=== PATIENT | female | born 1985 | race Caucasian/White ===

== ENCOUNTER → 2018-12-05 | Outpatient (CLI) | payer BC ==
--- NOTE | 2018-12-05 16:12 | CARD ---
MR#: [id number] Date of Study: 12/05/2018 Ordering Physician: PAMELA WOOD, Referring Physician: PAMELA WOOD, Tech: Lacey Mills APPROVED REPORT EXAM: Two-dimensional and M-mode echocardiogram with Doppler and color Doppler. Other Information Quality : AverageHR: 75bpm Technically limited study due to Breast Surgery INDICATION Palpitations 2D DIMENSIONS RVDd2.5 (2.9-3.5cm)Left Atrium(2D)3.1 (1.6-4.0cm) IVSd0.9 (0.7-1.1cm)Aortic Root(2D)2.8 (2.0-3.7cm) LVDd4.1 (3.9-5.9cm)LVOT Diameter2.0 (1.8-2.4cm) PWd0.8 (0.7-1.1cm)LVDs2.1 (2.5-4.0cm) FS (%) 48.5 %SV58.1 ml LVEF(%)80.3 (>50%) Aortic Valve AoV Peak Long.122.2cm/sAoV VTI23.6cm AO Peak GR.6.0mmHgLVOT Peak Long.103.1cm/s LVOT VTI 21.36cmAO Mean GR.3mmHg ARLENE (VMAX)2.75mo3CKZ (VTI)2.80cm2 Mitral Valve MV E Xznrgxbh95.4cm/sMV DECEL [id number] MV A Evozvwts42.8cm/sE/A Ratio1.8 Tricuspid Valve TR P. Vbzlhpdo313cp/sRAP QTSFQTNM2lvLz TR Peak Gr.17njYtCHZH19ehLr Pulmonary Vein S1 Unohvxjm39.4cm/sD2 Akczztyo10.3cm/s LEFT VENTRICLE The left ventricle is normal size. There is normal left ventricular wall thickness. The left ventricu lar systolic function is normal. The Ejection Fraction is 60-65%. There is normal LV segmental wall m otion. The left ventricular diastolic function and filling is normal for age. RIGHT VENTRICLE The right ventricle is normal size. There is normal right ventricular wall thickness. The right ventr icular systolic function is normal. ATRIA The left atrium size is normal. The right atrium size is normal. The interatrial septum is intact wit h no evidence for an atrial septal defect or patent foramen ovale as noted on 2-D or Doppler imaging. AORTIC VALVE The aortic valve is normal in structure and function. Doppler and Color Flow revealed no significant aortic regurgitation. There is no significant aortic valvular stenosis. MITRAL VALVE The mitral valve is normal in structure and function. There is no evidence of mitral valve prolapse. There is no mitral valve stenosis. Doppler and Color-flow revealed trace mitral regurgitation. TRICUSPID VALVE The tricuspid valve is normal in structure and function. Doppler and Color Flow revealed trace tricus pid regurgitation with an estimated PAP of 25 mmHg. There is no tricuspid valve stenosis. PULMONIC VALVE The pulmonic valve is not well visualized. Doppler and Color Flow revealed no pulmonic valvular regur gitation. GREAT VESSELS The aortic root is normal in size. The IVC is normal in size and collapses >50% with inspiration. PERICARDIAL EFFUSION There is no evidence of significant pericardial effusion. Critical Notification Critical Value: No <Conclusion> The left ventricular systolic function is normal. The Ejection Fraction is 60-65%. There is normal LV segmental wall motion. Trace mitral regurgitation. Trace tricuspid regurgitation with an estimated PAP of 25 mmHg. There is no evidence of significant pericardial effusion. Signed by : Angelito Castro, Electronically Approved : 12/05/2018 16:11:36
== END | disposition home or self-care (01) ==
LOC: ECHO 12:49
PROVIDERS: ATTEND Specialist
DX: R00.2 Palpitations (principal)
CPT/HCPCS: 93306